=== PATIENT | male | born 1995 | race Caucasian/White ===

== ENCOUNTER 2018-02-13 17:52 | Observation (INO) | payer OTHER ==
[~2018-02-13] VITALS: Ht 190.5 cm; Wt 107.7 kg
[2018-02-13 18:56] LABS: BASO % 0.2 % (0.0-2.0); EOS % 0.3 % (0-4.0); GRAN # 7.1 (1.4-6.5); GRAN % 74.4 % (42.2-75.2); HEMATOCRIT 44.9 % (42.0-52.0); HEMOGLOBIN 15.7 g/dl (13.5-18.0); LYMPH # 1.8 (1.2-3.4); LYMPH % 18.7 % (20.0-51.0); MEAN CELL VOLUME 91 fl (80.0-100.0); MEAN CORPUSCULAR HEMOGLOBIN 32 pg (27.0-31.0); MEAN CORPUSCULAR HGB CONC 35 g/dl (33.0-37.0); MEAN PLATELET VOLUME 10.3 fl (7.4-10.4); MONO # 0.6 (0.1-0.6); PLATELET COUNT 187 K/mm3 (130-400); RED BLOOD COUNT 4.92 M/mm3 (4.20-5.60); REDCELL DISTRIBUTION WIDTH-CV 11.4 % (11.5-14.5)
[2018-02-13 19:10] LABS: ALANINE AMINOTRANSFERASE 52 U/L (21-72); ALBUMIN 4.3 gm/dL (3.5-5.0); ALKALINE PHOSPHATASE 77 U/L (50-136); ANION GAP 12 mmol/L (7-16); AST,SGOT 60 U/L (15-37); BILIRUBIN,TOTAL 1.1 mg/dL (0.0-1.0); BLOOD UREA NITROGEN 16 mg/dL (9-20); CALCIUM 9.6 mg/dL (8.4-10.2); CARBON DIOXIDE 28 mmol/L (22-30); CHLORIDE 100 mmol/L (98-107); CREATINE KINASE 437 U/L (55-170); CREATININE, serum 1.56 mg/dL (0.66-1.25); GLUCOSE 127 mg/dL (74-106); POTASSIUM 3.7 mmol/L (3.4-5.0); SODIUM 140 mmol/L (137-145); TOTAL PROTEIN 7.4 gm/dL (6.4-8.2)
[2018-02-13 19:20] LABS: ERYTHROCYTE SEDIMENTATION RATE 1 mm/hr (0-15)
[2018-02-13 19:27] LABS: TROPONIN-I < 0.012 ng/mL (0.000-0.034)
[2018-02-13 21:10] VITALS: BP 152/71; PULSE 58; TEMP 98.1
[2018-02-13 23:16] VITALS: BP 126/39; PULSE 54; TEMP 98.4
[2018-02-14 03:39] VITALS: BP 108/36; PULSE 75; TEMP 98
[2018-02-14 03:49] VITALS: BP 114/46; PULSE 55; TEMP 98.1
[2018-02-14 07:40] VITALS: BP 142/75; PULSE 64; TEMP 97.6
== END 2018-02-14 11:56 | disposition home or self-care (01) ==
LOC: COL.ER 17:52 → JCC 20:22
PROVIDERS: Emergency Medicine
DX: J93.83 Other pneumothorax (principal)
CPT/HCPCS: G0378; J1885; J7030

== ENCOUNTER → 2018-02-17 | Outpatient (CLI) | payer OTHER | LOC: COL.RAD 10:00 | DX: J93.83 Other pneumothorax (principal) ==

== ENCOUNTER 2018-05-21 23:23 | Emergency (ER) | payer OTHER ==
[~2018-05-21] VITALS: Ht 190.5 cm; Wt 104.5 kg
[2018-05-21 23:33] VITALS: BP 168/71
[2018-05-22] MEDS ORDERED: ZOFRAN ODT4 MG PO (00:27)
[2018-05-22] MEDS ORDERED: AMOXICILLIN 50500 MG PO (00:28)
[2018-05-22 01:20] VITALS: PULSE 86; TEMP 99.8
== END 2018-05-22 01:22 | disposition home or self-care (01) ==
LOC: COL.ER 23:23
DX: J03.90 Acute tonsillitis, unspecified (principal)
CPT/HCPCS: J1100; J1170; J7030

== ENCOUNTER 2018-09-24 16:29 | Emergency (ER) | payer OTHER ==
[~2018-09-24] VITALS: Ht 190.5 cm; Wt 106.8 kg
[~2018-09-24 16:29] MED LIST: AMOXICILLIN 50500 MG PO; ZOFRAN ODT4 MG PO
[2018-09-24 16:34] VITALS: BP 148/89; PULSE 60; TEMP 98.1
== END 2018-09-24 17:33 | disposition home or self-care (01) ==
LOC: COL.ER 16:29
DX: R06.02 Shortness of breath (principal)